=== PATIENT | female | born 1955 ===

== ENCOUNTER 2017-07-15 08:40 | Day surgery (SDC) | payer MEDICARE, OTHER ==
[2017-07-15 09:17] VITALS: BMI 27.1
--- NOTE | 2017-07-15 10:20 | CP.SDSHP ---
Same Day Surgery H & P - History Proposed Procedure: COLONSCOPY Pre-Op Diagnosis: SEE NOTES - Previous Medical/Surgical History Misc: Other Pain: 2.Mild Pain - Allergies Allergies: Allergies No Known Allergies Allergy (Verified 07/15/17 09:17) - Physical Exam General Appearance: N Vital Signs: Vital Signs 07/15/17 09:19 Temperature 97.2 F L Pulse Rate 67 Respiratory 18 Rate Blood Pressure 140/70 O2 Sat by Pulse 99 Oximetry Mental Status: Alert & Oriented x3 Neuro: WNL Heart: WNL Lungs: WNL GI: WNL - {Optional Preform as Required} Breast: WNL Abdomen: Other Rectal: WNL Integument: WNL : WNL Ortho: WNL ENT: WNL - Impression Pt. Evaluated Today:Candidate for Anesthesia & Procedure: Yes - Date & Time Time: 10:19 Short Stay Discharge - Short Stay Discharge Admitting Diagnosis/Reason for Visit: COLON SCREENING Disposition: HOME/ ROUTINE
[2017-07-15] MEDS ORDERED: Propofol 10 mg/ml Inj (20 ML) ONE (10:21)
[2017-07-15] MEDS ORDERED: Lidocaine Hydrochloride 5 ML INJ ONE (10:22)
[2017-07-15 12:01] VITALS: TEMP 97
[2017-07-15 12:14] VITALS: RESP 15
[2017-07-15 12:15] VITALS: BP 143/83; PULSE 63; O2SAT 100
== END 2017-07-15 12:12 | disposition home or self-care (01) ==
LOC: C.ENDO 08:40
PROVIDERS: ATTEND Specialist
DX: Z12.11 Encounter for screening for malignant neoplasm of colon (principal); K64.8 Other hemorrhoids
CPT/HCPCS: 45380; 88305; J2704

== ENCOUNTER 2018-11-27 10:19 | Emergency (ER) | payer MEDICARE, OTHER ==
[2018-11-27 10:20] VITALS: BMI 27.1
[2018-11-27 10:25] VITALS: BP 188/74; PULSE 75; RESP 20; TEMP 98.2; O2SAT 98
--- NOTE | 2018-11-27 11:57 | C.PDOC ---
History Of Present Illness 63 year old female presents to the ED for evaluation of constipation for 11 days. Patient has tried drinking herbal teas and taking magnesium citrate, without relief. Patient states she tried putting her finger "down there" and states she felt some stool. Patient denies fever, chills, nausea, vomiting, abdominal pain. Time Seen by Provider: 11/27/18 10:51 Chief Complaint (Nursing): GI Problem History Per: Patient History/Exam Limitations: no limitations Onset/Duration Of Symptoms: Days (11) Current Symptoms Are (Timing): Still Present Quality Of Discomfort: "Pain" Associated Symptoms: denies: Fever, Nausea, Vomiting Additional History Per: Patient Past Medical History Reviewed: Historical Data, Nursing Documentation, Vital Signs Vital Signs: Last Vital Signs Temp 98.2 F 11/27/18 10:22 Pulse 75 11/27/18 10:22 Resp 20 11/27/18 10:22 BP 188/74 H 11/27/18 10:22 Pulse Ox 98 11/27/18 10:22 - Medical History PMH: No Chronic Diseases Denies: Chronic Kidney Disease Surgical History: No Surg Hx Family History: States: Unknown Family Hx - Social History Hx Alcohol Use: No Hx Substance Use: No - Immunization History Hx Tetanus Toxoid Vaccination: No Hx Influenza Vaccination: Yes (2018) Hx Pneumococcal Vaccination: No Review Of Systems Constitutional: Negative for: Fever, Chills Gastrointestinal: Positive for: Constipation. Negative for: Nausea, Vomiting, Abdominal Pain, Diarrhea, Rectal Pain Physical Exam - Physical Exam Appears: Non-toxic, No Acute Distress Skin: Normal Color, Warm, Dry Head: Atraumatic, Normacephalic Eye(s): bilateral: Normal Inspection Oral Mucosa: Moist Neck: Supple Chest: Symmetrical, No Deformity, No Tenderness Cardiovascular: Rhythm Regular, No Murmur Respiratory: Normal Breath Sounds, No Rales, No Rhonchi, No Wheezing Gastrointestinal/Abdominal: Soft, No Tenderness, No Guarding, No Rebound Extremity: Normal ROM, Capillary Refill (less than 2 seconds ) Neurological/Psych: Oriented x3, Normal Speech, Normal Cognition ED Course And Treatment O2 Sat by Pulse Oximetry: 98 (on RA) Pulse Ox Interpretation: Normal Medical Decision Making Medical Decision Making: Progress: Fleet enema HI given. Patient had a bowel movement in the ED. Reports instant relief. On reassessment, patient is resting comfortably, showing no signs of distress and is stable for discharge. Patient will be discharged with Rx and advised to follow up with PMD within 1-2 days for further evaluation. Advised to return to the ED if symptoms persist or worsen. Disposition Counseled Patient/Family Regarding: Diagnosis, Need For Followup - Disposition Disposition: HOME/ ROUTINE Disposition Time: 11:56 Condition: IMPROVED Additional Instructions: ROSIBEL VERO DUKE, thank you for letting us take care of you today. Your provider was Elinor Hatfield MD and you were treated for CONSTIPATION X 11 DAYS. The emergency medical care you received today was directed at your acute symptoms. If you were prescribed any medication, please fill it and take as directed. It may take several days for your symptoms to resolve. Return to the Emergency Department if your symptoms worsen, do not improve, or if you have any other problems. Please contact your doctor in 1-2 days for a follow up appointment. Bring any paperwork you were given at discharge with you along with any medications you are taking to your follow up visit. Our treatment cannot replace ongoing medical care by a primary care provider outside of the emergency department. Thank you for allowing the [facility] team to be part of your care today. If you had an X-Ray or CT scan: A Radiologist will review the ED reading if any change in treatment is needed we will contact you. If you had a blood, urine, or wound culture: It will take several days for the results, if any change in treatment is needed we will contact you. If you had an STI test: It will take 48 hours for the results. Please call after 1 week if you have not heard back. Instructions: Constipation, Adult (DC) Forms: Gen Discharge Inst Chinese, [employer] (Chinese) Print Language: ESTONIAN - POA Present On Arrival: None - Clinical Impression Clinical Impression: Constipation - PA / LINES TENDER / Resident Statement MD/DO has reviewed & agrees with the documentation as recorded. - Scribe Statement The provider has reviewed the documentation as recorded by the Scribe (Lynn Burnett) Provider Attestation: All medical record entries made by the Scribe were at my direction and personally dictated by me. I have reviewed the chart and agree that the record accurately reflects my personal performance of the history, physical exam, medical decision making, and the department course for this patient. I have also personally directed, reviewed, and agree with the discharge instructions and disposition.
== END 2018-11-27 12:03 | disposition home or self-care (01) ==
LOC: C.ER 10:19
DX: K59.00 Constipation, unspecified (principal)